=== PATIENT | female | born 1955 | race Caucasian/White ===

== ENCOUNTER → 2020-10-31 | Day surgery (SDC) | payer OTHER ==
[~2020-10-31] MED LIST: ACNE CLEANSING1 EACH TOP; ALLOPURINOL 30300 M2; AMITRIPTYLINE H25 M2 PO; BACTRIM DS TAB1 EACH PO; BISOPROLOL FUMAR5 MG PO; BUSPAR 5 MG TABL5 M1 PO; CALCIUM 600 +1 EAC8 PO; CIPROFLOXACIN500 M3 PO; CLONAZEPAM 1 MG1 M1; CRANBERRY CONC500 MG PO; CYMBALTA60 MG; DICLOFENAC SODI75 M1; DIPHENOXYLATE/A1 TA1 PO; DOXEPIN 50MG CA50 M1; HYDROCODON-ACE1 EAC1; HYDROXYZINE PAM25 M1 PO; IBUPROFEN 800800 M1 PO; LISINOPRIL-HCT1 EAC1; MECLIZINE HCL12.5 MG PO; MELATONIN10 M3 PO; METHOCARBAMOL750 MG PO; MIDODRINE HCL 55 M1 PO; MOBIC15 MG PO; MULTIVITAMINS PO; NAPROSYN500 MG PO; NEO-POLYMYXIN-H10 ML; NEURONTIN600 MG; NORCO 10-325 T1 EACH PO; OMEGA-3 FISH1200 MG PO; OMEPRAZOLE40 MG PO; ONDANSETRON HCL4 M2 PO; ONDANSETRON ODT4 MG; OXYCODON-ACETA1 EAC1 PO; PHENERGAN 25 MG25 M1 PO; POTASSIUM20 PO; RISPERDAL 1 MG T1 MG PO; SUPER B-50 COM1 EACH PO; TOPAMAX100 MG PO; VENLAFAXINE HC150 M1 PO; VENLAFAXINE HCL75 MG PO; VIIBRYD20 MG; WELLBUTRIN SR150 MG PO; XANAX 0.5 MG0.5 MG PO; ZANAFLEX4 MG PO
--- NOTE | ~2020-10-31 | PROC ---
[address] [address] PROCEDURE REPORT Name: SARAH TOURE Room: [facility]#: [id number] Admission: 10/31/20 Attend Phys: Chris Ma MD Discharge: Date of : 57 Report #: [id number] THIS REPORT FOR: cc: Lizett Albarado Tara DO ~ [facility],Medical Records Staff For GI report, please see the Provation report in Perceptive 7 content. By: 0933Medical Records Staff ELLEN /KYLE
[2020-10-31 09:24] LABS: HEMATOCRIT 40.7 % (37.0-47.0); HEMOGLOBIN 13.4 gm/dL (12.0-15.0); MCH 32.5 pg (26.0-34.0); MCHC 32.8 g/dL (28.0-37.0); MCV 99.1 fL (80.0-100.0); MPV 7.7 fl. (7.2-11.1); RBC 4.11 mil/uL (4.20-5.00); RDW-CV 12.2 % (10.5-14.5)
[2020-10-31 09:30] LABS: CALCIUM 9.7 mg/dL (8.5-10.1); CREATININE 0.9 mg/dL (0.6-1.3); POTASSIUM 3.1 mmol/L (3.5-5.1)
--- NOTE | 2020-10-31 12:43 | EKG ---
[place] [address] ELECTROCARDIOGRAM REPORT Name: SARAH TOURE Room: [facility]#: [id number] Admission: 10/31/20 Attend Phys: Chris Ma, Discharge: Date of : 57 Date of Service: 10/31/20929 Report #: [id number] THIS REPORT FOR: //name// [facility] Test Date: 2020-10-31 Test Time: 09:30:32 Pat Name: SARAH TOURE Department: Room: Gender: F Content Administrator: ADALID : 1955 Requested By: Chris Ma Order Number: [id number] Reading MD: Nagi Lazaro Measurements Intervals [place] Rate: 80 P: 66 NE: 151 QRS: 53 QRSD: 83 T: 90 QT: 344 QTc: 397 Interpretive Statements Sinus rhythm Atrial premature complex Borderline repolarization abnormality Compared to ECG 06/25/2012 15:01:20 Atrial premature complex(es) now present ST (T wave) deviation now present Electronically Signed On 10-31-2020 12:43:20 COSMETIC SURGEON by Nagi Lazaro [email or web address] <ELECTRONICALLY SIGNED> By: Nagi Lazaro MD, [facility] 10/31/20 1243 9 9 Nagi Lazaro MD, [facility] /EPI
--- NOTE | 2020-11-05 14:06 | PATH ---
[facility] [address] [place] [address] PATHOLOGY RPT PROCEDURE Name: BRITT RITCHIE Room: [facility] Shanda#: [id number] Admission: 10/31/20 Date of : 57 Discharge: Report #: [id number] Path Case #: [id number] [facility] Accession Number: [id number] . 01 Material submitted: . stomach - GASTRIC BIOPSY . 01 Clinical history: . WEIGHT LOSS, GASTROPARESIS . 02 Diagnosis: Gastric biopsy: - Moderate nonspecific chronic active gastritis, negative for Helicobacter pylori organisms, granulomas and dysplasia. See comment. (DONA:edward; 11/05/2020) [facility] [place] 11/05/2020 [address] [facility] . 02 Comment: The inflammatory pattern is typical of that seen with H. pylori infection; however, properly controlled H. pylori immunohistochemical stain is negative. This suggests possible partially treated H. pylori gastritis. (DONA:edward; 11/05/2020) . Special stain: H. pylori immuno . 02 Electronically signed: . Jay Hunt MD, Pathologist NPI- [id number] . 01 Gross description: . The specimen is received in formalin, labeled "Britt Ritchie, gastric biopsy". Received is a segment of pale gillis soft tissue measuring 0.7 cm in maximum dimensions. The specimen is submitted entirely in cassette A1. (CAA; 11/01/2020) QAC/QA 11/01/2020 1342 Local . 02 Pathologist provided ICD-10: K29.50 . 02 CPT . 970577, S93820 Specimen Comment: A courtesy copy of this report has been sent to [phone] Specimen Comment: [phone] Specimen Comment: Report sent to , / Performed at: [address], [place] [id number] [place] [address] PATHOLOGY RPT PROCEDURE Name: BRITT RITCHIE [id number] Admission: 10/31/20 Date of : 57 Discharge: Report #: [id number] Path Case #: [id number] MD Swapnil Menjivar MD Phone: [phone] Performed at: 02 [facility] [address], [place], [place] [id number] MD Jay Hunt MD Phone: [phone]
== END | disposition home or self-care (01) ==
LOC: M.SUR 08:23
PROVIDERS: ATTEND Internal Medicine Gastroenterology
DX: R63.4 Abnormal weight loss (principal); K57.30 Diverticulosis of large intestine without perforation or abscess without bleeding; K64.4 Residual hemorrhoidal skin tags; K29.50 Unspecified chronic gastritis without bleeding; K21.9 Gastro-esophageal reflux disease without esophagitis; F32.9 Major depressive disorder, single episode, unspecified; F41.9 Anxiety disorder, unspecified; G43.909 Migraine, unspecified, not intractable, without status migrainosus; Z98.890 Other specified postprocedural states; Z79.899 Other long term (current) drug therapy; Z86.73 Personal history of transient ischemic attack (TIA), and cerebral infarction without residual deficits; Z88.8 Allergy status to other drugs, medicaments and biological substances